=== PATIENT | male | born 1960 | race Caucasian/White ===

== ENCOUNTER 2018-01-30 07:22 | Day surgery (SDC) | payer MEDICARE, MEDICAID ==
[~2018-01-30 07:22] MED LIST: ACETAMINOPHEN 1,000 MG/100 ML BTL IV ONE
[2018-01-30] MEDS ORDERED: HYDROMORPHONE HCL 2 MG/ML VIAL IV ONE (07:23)
[2018-01-30] MEDS ORDERED: METOCLOPRAMIDE HCL 10 MG/2 ML VIAL IVP ONE (07:23)
[2018-01-30] MEDS ORDERED: MIDAZOLAM HCL 2MG/2ML VIAL IV ONE (07:23)
[2018-01-30] MEDS ORDERED: SEVOFLURANE 250 ML INH ONE (07:23)
[2018-01-30] MEDS ORDERED: BUPIVACAINE 0.25% W/EPI MPF 30ML VIAL IVP ONE (07:23)
[2018-01-30] MEDS ORDERED: FENTANYL PF 100MCG/2ML VIAL IV ONE (07:23)
[2018-01-30] MEDS ORDERED: LIDOCAINE 2% MDV (20MG/ML) 20ML VIAL IV ONE (07:23)
[2018-01-30] MEDS ORDERED: KETOROLAC 30 MG/ML VIAL IVP ONE (07:23)
[2018-01-30] MEDS ORDERED: PROPOFOL 10 MG/ML VIAL IV ONE (07:23)
[2018-01-30] MEDS ORDERED: ONDANSETRON HCL IV 4 MG/2 ML VIAL IVP ONE (07:23)
--- NOTE | 2018-01-30 14:50 | Operative Note ---
DATE OF SURGERY: 01/30/2018 Surgeon: Francisco Liu DO PREOPERATIVE DIAGNOSES: 1. Possible torn medial meniscus, right knee. 2. Chondromalacia, right knee. POSTOPERATIVE DIAGNOSES: 1. Chondromalacia, right knee. 2. Old tear of anterior cruciate ligament. OPERATION: Arthroscopic chondroplasty medial femoral condyle, lateral femoral condyle, trochlea and patella right knee. DESCRIPTION OF PROCEDURE: This 57-year-old male was taken to the operating room, placed in the supine position on the operating room table where general anesthesia was induced. The right lower extremity was elevated. It was prepped with Hibiclens and draped in the usual sterile fashion after exsanguinated and tourniquet inflation to 300 mmHg. We then established an inferolateral portal for the 4 mm arthroscope. Initial evaluation of the joint demonstrated normal appearance of the suprapatellar pouch other than some reactive synovitis. 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 Loose fragment of articular cartilage was present on both, and a chondroplasty was performed to stabilize the articular cartilage there. The medial compartment was entered and a degenerative change of the medial femoral condyle was present. It was linear from anterior to posterior and approximately 1 to 1.5 cm wide running down the middle of the articular cartilage with loose flaps of articular cartilage on both sides. This was smoothed and trimmed with the rotating shaver. The medial meniscus was probed and some mild degenerative changes were present but no tears in the inferior or superior surface were identified. It was not unstable and not disturbed. The intracondylar notch was examined, and a complete tear of the anterior cruciate ligament was identified. This was an old tear. The lateral compartment was entered and chondromalacia was present of the lateral femoral condyle in a very similar fashion to the medial femoral condyle longitudinally from anterior to posterior except this was deeper down to subchondral bones, grade 3 change noted here. We debrided the unstable fragments of articular cartilage there. The joint was copiously irrigated and suctioned. All areas reexamined. We did not demonstrate any meniscal tears of either the medial or lateral meniscus. The joint was suctioned. Instruments removed. Portals infiltrated with 0.25% Marcaine with epinephrine. Sterile dressings applied. Tourniquet and knee mcdonald released and the patient taken to the recovery room in satisfactory condition. GROSS PATHOLOGY: Grade 3 chondromalacia in all compartments with the patella being grade 2. Old tear of the anterior cruciate ligament was also identified. CC: Contreras Bolanos MD [facility] SYSTEM[facility]anty
== END 2018-01-30 10:40 | disposition home or self-care (01) ==
LOC: SUR 07:22
PROVIDERS: ATTEND Orthopaedic Surgery
DX: M22.41 Chondromalacia patellae, right knee (principal); M23.91 Unspecified internal derangement of right knee; C22.9 Malignant neoplasm of liver, not specified as primary or secondary; F17.210 Nicotine dependence, cigarettes, uncomplicated
CPT/HCPCS: 29877; 01400; J1885; J2405; J3010; J1170; J2765